=== PATIENT | male | born 1945 | race Caucasian/White ===

== ENCOUNTER 2024-05-03 13:27 | Emergency (ER) | payer MEDICARE, OTHER ==
[~2024-05-03] VITALS: Ht 177.8 cm; Wt 70.0 kg
[2024-05-03 13:31] VITALS: O2SAT 98
[2024-05-03 14:14] LABS: BASOPHILS % 0.6 % (0.0-2.0); DIFFERENTIAL COMMENT 0; EOSINOPHILS % 0.4 % (0.0-5.0); HEMATOCRIT. 34.1 % (42.0-52.0); HEMOGLOBIN. 10.7 g/dL (14.0-18.0); MEAN CORPUSCULAR HEMOGLOBIN 23.2 pg (28.0-32.0); MEAN CORPUSCULAR HGB CONC 31.5 g/dL (31.0-37.0); MEAN CORPUSCULAR VOLUME 73.9 fL (80.0-94.0); MONOCYTES % 9.2 % (2.0-8.0); NEUTROPHILS % 80.8 % (40.0-76.0); PLATELET 357 x1000/uL (130-400); RED BLOOD CELL COUNT 4.61 mill/uL (4.7-6.1); WHITE BLOOD COUNT 13.8 x1000/uL (4.5-11.0)
[2024-05-03 14:17] LABS: CALCIUM 8.9 mg/dL (8.7-10.4); CHLORIDE 103 mEq/L (98-107); POTASSIUM 4.7 mEq/L (3.5-5.1); SODIUM 136 mEq/L (136-145)
[2024-05-03 14:18] LABS: CARBON DIOXIDE 27 mEq/L (21-32)
[2024-05-03 14:22] LABS: INR 0.9; PROTHROMBIN TIME 10.5 sec (9.6-11.0)
[2024-05-03 14:23] LABS: CREATININE 0.9 mg/dL (0.6-1.3); GLUCOSE 108 mg/dL (70-105); UREA NITROGEN BLOOD 16 mg/dL (9-23)
[2024-05-03 14:38] VITALS: BP 119/75; PULSE 109; RESP 18; O2SAT 98
== END 2024-05-03 14:09 | disposition left against medical advice (07) ==
LOC: ER 13:49
DX: R22.0 Localized swelling, mass and lump, head (principal); F03.90 Unspecified dementia, unspecified severity, without behavioral disturbance, psychotic disturbance, mood disturbance, and anxiety
CPT/HCPCS: 36415; 80048; 85025; 99283